=== PATIENT | female | born 1995 | race Caucasian/White ===

== ENCOUNTER → 2020-04-05 10:56 | Outpatient (CLI) | payer OTHER, MEDICAID, SELFPAY ==
--- NOTE | 2020-04-05 | DI.RAD.S_ITS ---
PROCEDURE: FL BARIUM SWALLOW W SPEECH INDICATIONS: Dysphagia, unspecified COMPARISON: None. TECHNIQUE: Examination was conducted in conjunction with speech pathology per standard protocol. In the lateral projection, filming was performed of the patient swallowing. AP projection filming may also be performed with patient swallowing. COMPARISON: FINDINGS: Function: The oral preparatory phase appears normal, with proper containment. The subsequent oral propulsive phase, pharyngeal phase, and esophageal phase of swallowing also appear normal with all proffered substances. There was flash laryngeotracheal penetration with thin liquids. No other penetration or aspiration. No pathologic vallecular pooling. Barium swallow demonstrated normal motility. A standard barium pill was swallowed without difficulty. Morphology: No cricopharyngeal bar is identified. No cervical esophageal webs. No Zenker's diverticulum. No strictures. IMPRESSION: 1. Single instance of flash penetration with thin liquids. No other penetration or aspiration. 2. A barium pill was swallowed with no difficulty. Dictated by: Amadou Hernandez M.D. on 04/05/2020 at 12:33 Approved by: Amadou Hernandez M.D. on 04/05/2020 at 12:38
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
== END ==
PROVIDERS: Referring Provider Family Medicine; Visit Provider Family Medicine
DX: R13.10 Dysphagia, unspecified (principal)
CPT/HCPCS: 74230; 92611

== ENCOUNTER 2022-06-15 09:20 | Outpatient (CLI) | payer OTHER, MEDICAID, SELFPAY | END 2022-06-19 09:24 | disposition home or self-care (01) | LOC: PHYS 09:21 | PROVIDERS: Family Provider Physician Assistant Medical; PCP Physician Assistant Medical; Referring Provider Family Medicine; Visit Provider Family Medicine | DX: G58.9 Mononeuropathy, unspecified (principal) | CPT/HCPCS: 95886; 95909 ==